=== PATIENT | female | born 2000 | race Caucasian/White ===

== ENCOUNTER 2018-08-08 19:24 | Emergency (ER) | payer OTHER ==
[~2018-08-08] VITALS: Ht 165.1 cm; Wt 61.5 kg
[2018-08-08] MEDS ORDERED: normal saline 1000ML IV soln IVB ONE (21:15)
[2018-08-08 22:29] VITALS: BP 93/55
--- NOTE | 2018-08-09 00:15 | NUR ---
PT CONTINUOUSLY LEAVING ROOM AND COMING OVER TO NURSES STATION TO TRY AND GET US TO TAKE HER BACK TO [facility]. MULTIPLE TIMES EXPLAINED TO PT THAT WE COULD NOT DO THAT, AND THAT SHE COULD CONTACT A RELIABLE FRIEND TO COME PICK HER UP, WE COULD [facility] HER TO THE [facility], OR SHE COULD PAY FOR A HOTEL ROOM. PT REPEATEDLY ASKING WHY WE COULD NOT JUST TAKE HER TO [facility]. PT CRYING THAT SHE COULD NOT AFFORD TO STAY IN THE ER ALL NIGHT AND THAT SHE DOES NOT HAVE HER WALLET, CELL PHONE, CAR KEYS OR ANYTHING.
--- NOTE | 2018-08-09 01:30 | NUR ---
[facility] WILL HAD TO ESCORT PT BACK TO HER ROOM, DUE TO HER LEAVING HER ROOM AND COMING OVER TO NURSES STATION AGAIN.
--- NOTE | 2018-08-09 01:48 | NUR ---
PTS FATHER CALLED IN AND CONFIRMED THAT PT WILL BE GOING TO [facility] @ [facility]. CALLED [facility] FOR PT TO BE TRANSPORTED TO [facility].
--- NOTE | 2018-08-09 01:55 | NUR ---
CALLED [facility] AT 01:55. WAS TO ETA WAS 20-30 MINS. INFORMED PT OF EXPECTED WAIT TIME
== END 2018-08-09 03:00 | disposition home or self-care (01) ==
LOC: ER 19:25
DX: S40.011A Contusion of right shoulder, initial encounter (principal); S79.811A Other specified injuries of right hip, initial encounter; F10.129 Alcohol abuse with intoxication, unspecified; F14.90 Cocaine use, unspecified, uncomplicated; Z88.6 Allergy status to analgesic agent; X58.XXXA Exposure to other specified factors, initial encounter; Y93.89 Activity, other specified; Y92.89 Other specified places as the place of occurrence of the external cause; Y99.8 Other external cause status
CPT/HCPCS: 99283; J7030